=== PATIENT | male | born 1965 | race Caucasian/White ===

== ENCOUNTER 2025-10-06 12:23 | Emergency (ER) | payer BC, SELFPAY ==
--- NOTE | 2025-10-06 12:26 | ED_ITS ---
HPI - Male Genitourinary General Chief complaint: Urogenital-Male Stated complaint: priapism Time Seen by Provider: 10/06/25 12:36 Source: patient Mode of arrival: ambulatory Limitations: no limitations History of Present Illness ED Provider: Amanda Rodrigues PA-C HPI Narrative: Patient is a 60 year old male with a history of T1DM and ED presenting to the emergency department today with concerns of a priapism. Patient states that at 10am today he was seen at [facility] where he had an injection in his penis for erectile dysfunction. Patient states that he was told if his erection lasted after ejaculation for several hours - he should try ice + sudafed and if that doesn't work come to the nearest ER. Patient states that he was explicitly told not to call the urology office back and to go to the ER. Patient states that he went home after the injection, ejaculated, and then his erection remained. Patient states that he attempted ice and sudafed but his erection remained. Patient denies any other complaints at this time. Related Data Allergies Allergy/AdvReac Type Severity Reaction Status Date / Time Penicillins Allergy Intermediate Rash Verified 10/06/25 12:27 Review of Systems Constitutional: Constitutional: Reports as per HPI Eyes: Eyes: Reports as per HPI ENT: Reports as per HPI Cardiovascular: Cardiovascular: Reports as per HPI Respiratory: Respiratory: Reports as per HPI Gastrointestinal: Gastrointestinal: Reports as per HPI Genitourinary: Genitourinary: Reports as per HPI Musculoskeletal: Musculoskeletal: Reports as per HPI Integumentary/Breasts: Skin/Breast: Reports as per HPI Neurologic: Reports as per HPI Psychiatric: Psychiatric: Reports as per HPI Endocrine: Endocrine: Reports as per HPI Hematologic/Lymphatic: Hematologic/Lymphatic: Reports as per HPI Allergic/Immunologic: Allergic/Immunologic: Reports as per HPI PMF Past Medical History Attestation statement: The following information was validated with the patient. Source: old records reviewed and nursing notes reviewed Social History Social History Smoked in Last 30 Days: No Advance Directives: No Advance Directives Information Provided: No Do you have a plan to hurt others: No Plan Physical Exam Vital Signs: Vital Signs: Last Vital Signs Temp 98.1 F 10/06/25 16:53 Pulse 75 10/06/25 16:53 Resp 16 10/06/25 16:53 BP 148/68 H 10/06/25 16:53 Pulse Ox 98 10/06/25 16:53 O2 Del Method Room Air 10/06/25 16:53 BMI result Body Mass Index 29.9 Const: General: cooperative, no acute distress, alert and awake Nutritional Appearance: well nourished Orientation/consciousness: patient oriented x3 HEENT: Head: Yes normal to inspection and Yes atraumatic Ears: hearing grossly normal bilaterally and external ears normal General nose exam: Normal external nose present, no nasal discharge noted and no epistaxis Face and sinus: Yes normal facial exam, No abrasion and No laceration Mouth: Normal oral and palatal mucosa present, no drooling and no muffled voice Eyes: General: appearance normal, both eyes and all related structures Periorbital: periorbital findings normal Eyelids: Yes eyelids normal Conjunctivae: conjunctivae normal Pupils: Equal, round and reactive pupils present EOM: EOMs intact bilaterally Neck: Neck: Yes normal visual inspection and Yes full ROM Resp: Effort & Inspection: normal respiratory effort and able to speak in complete sentences : Other: Note: all penile examinations performed on this patient were performed with step finisher Dr. Hanna at the bed side. Penis: circumcised and other (erect) Neuro: General: patient oriented x3, moves all extremities and CN's II-XI intact bilaterally Cranial nerves: Yes Equal, round and reactive pupils present Cognition (Neuro): normal cognition Extrem: General: Yes normal to inspection, Yes full ROM and Yes capillary refill normal Psych: Appearance: grossly normal Mental Status: mental status grossly normal Affect: normal affect Attitude: cooperative Thought process: Normal thought process present Thought content: Normal thought content present Insight: Good insight present (Psych) Course Course Course Narrative: This is a Rapid Medical Exam performed in triage by Carri Sagastume PA-C. Full HPI, ROS and PE to be performed by primary ED provider. 60 yo M presenting to the ED c/o priaprism since 10AM - s/p getting an injection @[facility] for ED. Denies sx in the past. PE: area not evaluated in triage Plan: defer to main provider Medications Administered Discontinued Medications Generic Name Dose Route Start Last Admin Trade Name Freq PRN Reason Stop Dose Admin Hydromorphone HCl 0.5 mg 10/06/25 13:07 10/06/25 13:45 Hydromorphone Hcl 0.5 Mg/0.5 Ml Syringe IVPUSH 10/06/25 13:08 0.5 mg ONCE ONE Administration Protocol Sodium Chloride 1,000 mls @ 999 mls/hr 10/06/25 13:00 10/06/25 14:46 Ns IV 10/06/25 14:00 Infused .Q1H1M PATY Infusion Lidocaine HCl 15 ml 10/06/25 12:57 10/06/25 13:45 Lidocaine Hcl 1 % Mpf 5 Ml Vial SUBCUT 10/06/25 12:58 15 ml ONCE ONE Administration Medical Decision Making Medical Decision Making MDM Narrative: Patient is a 60 year old male with a history of T1DM and ED presenting to the emergency department today with concerns of a priapism. Patient's physical exam was as noted in the physical exam portion of this note. Patient's examination is consistent with a priapism. I spoke to Dr. Lopez from Urology who recommended having the patient apply ice to the penis, give 1 liter of IV fluids, inject 0.25mcg of phenylepherine, and if all of that doesn't work - drain the erection. My attending physician, Dr. Hanna, assisted me with the management of this case and agreed with the Urologist's recommendations. I explained my physical exam findings to the patient. I answered all questions asked by the patient. Patient was given 1 liter of IV fluids and 0.5mg of IV dilaudid. With Dr. Hanna's assistance, I performed a nerve block of the patient's penis - without incident. Then, we injected several doses of 0.25mcg of phenylepherine to the base of the patient's penis. Initially, the patient's erection began to dissipate but unfortunately, quickly returned. At that time, the patient requested to have it drained rather than continue with the phenylepherine. With Dr. Hanna's assistance, approximately 90ml of blood was withdrawn from the patient's penis and his erection subsided. Dr. Edi Kaufman applied a penile splint of gauze and a loosely applied ALIA wrap to the shaft of the penis to apply mild compression and chago any potential rebound priapism. Patient tolerated all procedures well and PMS was intact prior to and after all procedures to the penis. I stressed the importance of the patient taking his medication as directed (either prescribed or as the over the counter packaging recommends). I stressed the importance of the patient following up with his primary care provider and his urologist. I stressed the importance of the patient returning to the emergency department immediately if his symptoms were to worsen or if he were to develop any dizziness, shortness of breath, difficulty breathing, chest pain, blurry vision, loss of vision, nausea, vomiting, abdominal pain, fever, chills, back pain, or any other complaints. Patient verbalized agreement and understanding with this treatment plan and discharge. Differential Diagnosis Differential Diagnoses: The differential diagnosis associated with the presentation includes Priapism Admission/Observation Consideration of admission/observation: Escalation of care including admission/observation considered Patient would have been admitted to the hospital had his clinical presentation warranted hospital admission. Consult Healthcare Provider Management of the patient was discussed with: Bottom Polisher (spoke with the Urologist as noted in the MDM Rationale portion of this note. ) Chronic Conditions Patient?s care impacted by: Diabetes Procedures Nerve Block Nerve Block 1: Time out performed: Yes Local Anesthetic: lidocaine 1% Amount of anesthesia used (mL): 10 Nerve Blocks: other (penile) Procedure Successful: Yes Patient Tolerated Procedure: well Complications: none Penile Procedure Time Out Performed: Yes Indication: priapism management Procedural Sedation: No Sedation/Analgesia: none Local Anesthesia Used: penile nerve block Amount of anesthesia used (mL): 10 Priapism Management: aspiration and phenylephrine injection Patient Tolerated Procedure: well Complications: none Discharge Plan Discharge Clinical Impression: Priapism Patient Disposition: Home, Self-Care Instructions: Priapism (ED) Additional Instructions: We successfully drained the blood from your priapism and applied a penile splint. You may remove the penile splint tomorrow. Remove it IMMEDIATELY if you have any change in sensation or color to your penis. IF you are prescribed home medications and/or you are taking over the counter medications at home - it is very important you continue to do so as prescribed / directed unless told otherwise by a healthcare provider. Follow up with your primary care provider and your urologist at [facility]. Do your best to stay well hydrated and rest. Return to the emergency department immediately if your symptoms worsen or if you develop any numbness, tingling, dizziness, shortness of breath, difficulty breathing, chest pain, blurry vision, loss of vision, nausea, vomiting, abdominal pain, fever, chills, back pain, or any other complaints. If you do not have a primary care provider - call any of the below numbers to establish and follow up with a primary care provider. [facility] Primary Care ([place]) [phone] [place] [address], [address] [facility] Primary Care ([address] [place]) [phone] [place] [address], [address] [facility], [address] [facility] Primary Care ([address] [place]) [phone] [place] [address], [address] [facility], [address] [facility] Primary Care ([place]) [phone] [place] [address] [address] [facility], [address] [facility] Family Medicine [phone] [address] [facility], [address] Please see the information below about our Patient Portal. If you are not yet enrolled in the [facility] Patient Portal, you will receive an enrollment email invitation following your visit to any [facility] setting. You may also self-enroll in the Patient Portal by visiting our website: [email or web address] The following information is required to access the Patient Portal: - Your [facility] Medical Record Number - Your personal home email address (must match what is in your electronic medical record, Registration staff can assist with this) - Name - Date of Capabilities of the Patient Portal: - Message some providers - View upcoming appointments - Access your health summary, medical history, and visit history - View current conditions and allergies - View procedure and lab results - View your medications, including guidelines, side effects, and precautions - Complete pre-appointment questionnaires requested by your provider - Ready summary reports of your office visits and procedures To access the Patient Portal Mobile Golden, follow these directions: - Search [facility] in the Golden Store or inthinc Store - Download the Golden - Search for [facility] - Enter your login/password Referrals: Kamila Brunson NP [Primary Care Provider, Family Practice] Interventions: ED Discharge Assessment Last Done: 10/06/25 16:53 Discharge Date/Time: 10/06/25 16:54 Print Language: Mongolian
[2025-10-06 12:27] VITALS: BP 206/94; PULSE 104; RESP 18; TEMP 36.8; O2SAT 98; BMI 29.9
[2025-10-06 13:30] VITALS: BP 160/84; PULSE 90; RESP 16; O2SAT 94
[2025-10-06] MEDS: Lidocaine HCl 1 % MPF 5 ML VIAL 15 ML SUBCUT (13:45)
--- NOTE | 2025-10-06 14:18 | PC.NURSE ---
Pt continues to have priaprism despite ice to area. Awaits further techniques from provider. Aware of need for ride home.
[2025-10-06 14:37] VITALS: BP 146/75; PULSE 72; RESP 16; O2SAT 95
[2025-10-06 16:00] VITALS: BP 148/68
[2025-10-06 16:53] VITALS: BP 148/68; PULSE 75; RESP 16; TEMP 36.7; O2SAT 98
== END 2025-10-06 16:54 | disposition home or self-care (01) ==
PROVIDERS: Emergency Provider Emergency Medicine; PCP Nurse Practitioner Adult Health
DX: N48.30 Priapism, unspecified (principal); R11.0 Nausea; N52.9 Male erectile dysfunction, unspecified
CPT/HCPCS: 54220; 96361; 96374; 99284; J1171; J2003